=== PATIENT | male | born 1955 | race Caucasian/White ===

== ENCOUNTER 2016-04-15 09:57 | Inpatient (IN) | payer OTHER ==
[~2016-04-15] VITALS: Ht 172.7 cm; Wt 88.0 kg
[~2016-04-15 09:57] MED LIST: ALEVE220 MG PO; DAILY VALUE1 EACH PO; FISH OIL500 MG PO; FLOMAX0.4 MG PO; FLONASE16 G1 BOTH NARES; GLIPIZIDE10 MG PO; GLUCOPHAGE1000 MG PO; ICY HOT PATCH1 PATCH TD; LIPITOR80 MG PO; LO-DOSE ASPIRIN81 M1 PO; PROSCAR5 MG PO; SYNTHROID50 MCG PO; ZESTRIL10 MG PO
[2016-04-15 11:22] LABS: HEMATOCRIT 44.1 % (38.0-50.0); MCH 30.8 PG (29.0-34.0); MCHC 34.5 G/DL (30.0-36.0); MCV 89.3 FL (86-99); MEAN PLAT.VOLUME 10.9 uM^3 (9.0-12.4); PLATELET COUNT 140 K/uL (156-360); RBC DIS.WIDTH-CV 12.6 % (11.8-14.6); RBC DIS.WIDTH-SD 40.1 % (39-53); RED BLOOD COUNT 4.94 M/uL (4.00-5.50); WHITE BLOOD COUNT 8.4 K/uL (4.1-10.2)
[2016-04-15 11:31] LABS: CHLORIDE 108 mEq/L (99-109); POTASSIUM 4.7 mEq/L (3.7-5.4); SODIUM 139 mEq/L (136-147)
[2016-04-15 11:32] LABS: GLUCOSE 156 mg/dL (70-99)
[2016-04-15 11:34] LABS: ANION GAP 15 MEQ/L (2-14)
[2016-04-15 11:36] LABS: GFR ESTIMATE (CALCULATED) > 59 mL/min/
[2016-04-15 11:37] LABS: UREA NITROGEN (BUN) 15 mg/dL (9-23)
[2016-04-15 11:44] LABS: TROP-I INTERPRETATION NEGATIVE; TROPONIN-I < 0.01 ng/mL (0.0-0.30)
[2016-04-15] MEDS ORDERED: CYANOCOBALAM1000 MCG PO (15:11)
[2016-04-15 17:50] VITALS: BP 133/78
[2016-04-15 19:12] LABS: TROP-I INTERPRETATION NEGATIVE; TROPONIN-I < 0.01 ng/mL (0.0-0.30)
[2016-04-15 19:24] LABS: HDL CHOLESTEROL 18 MG/DL (Desirable>=40); LDL CHOLESTEROL 8 mg/dL (Desirable<100); NON-HDL CHOLESTEROL 56 mg/dL (Desirable<160); TOTAL CHOLESTEROL 74 mg/dL (Desirable<200); TRIGLYCERIDES 242 MG/DL (Normal: <150)
[2016-04-15 20:00] VITALS: BP 132/86
[2016-04-15 22:08] LABS: POINT-OF-CARE METER ID UU13113700
[2016-04-16 00:01] VITALS: BP 155/76
[2016-04-16 04:20] VITALS: BP 131/71
[2016-04-16 08:36] VITALS: BP 148/78
[2016-04-16 12:37] LABS: POINT-OF-CARE METER ID UU13113700
[2016-04-16 13:07] LABS: TROP-I INTERPRETATION NEGATIVE; TROPONIN-I < 0.01 ng/mL (0.0-0.30)
[2016-04-16 13:09] VITALS: BP 132/76
[2016-04-16 16:11] VITALS: BP 133/78
[2016-04-16 17:50] LABS: POINT-OF-CARE METER ID UU13113700
[2016-04-16 20:05] VITALS: BP 145/79
[2016-04-16 21:58] LABS: POINT-OF-CARE METER ID UU13113700
[2016-04-17 00:51] VITALS: BP 128/62
[2016-04-17 05:09] VITALS: BP 134/71
[2016-04-17 08:25] VITALS: BP 122/76
[2016-04-17 08:36] LABS: POINT-OF-CARE METER ID UU13113700
[2016-04-17 17:02] LABS: POINT-OF-CARE METER ID UU13113700
[2016-04-17 21:04] LABS: POINT-OF-CARE METER ID UU14162513
[2016-04-17 21:23] VITALS: BP 113/55
[2016-04-18 00:22] VITALS: BP 112/59
[2016-04-18 04:45] VITALS: BP 121/65
[2016-04-18 07:38] LABS: POINT-OF-CARE METER ID UU13113831
[2016-04-18 08:09] VITALS: BP 117/73
[2016-04-18 12:03] LABS: POINT-OF-CARE METER ID UU13113700
[2016-04-18 12:30] VITALS: BP 92/52
[2016-04-18 16:30] VITALS: BP 112/59
[2016-04-18 17:37] LABS: POINT-OF-CARE METER ID UU13113700
[2016-04-18 21:30] VITALS: BP 117/67
[2016-04-18 22:06] LABS: POINT-OF-CARE METER ID UU13113700
[2016-04-19 00:20] VITALS: BP 115/54
[2016-04-19 05:00] VITALS: BP 110/68
[2016-04-19 06:10] LABS: HEMATOCRIT 42.8 % (38.0-50.0); MCH 31.1 PG (29.0-34.0); MCHC 33.4 G/DL (30.0-36.0); MEAN PLAT.VOLUME 11.4 uM^3 (9.0-12.4); PLATELET COUNT 116 K/uL (156-360); RBC DIS.WIDTH-CV 12.7 % (11.8-14.6); RBC DIS.WIDTH-SD 43.3 % (39-53); WHITE BLOOD COUNT 7.1 K/uL (4.1-10.2)
[2016-04-19 06:30] LABS: ANION GAP 9 MEQ/L (2-14); CHLORIDE 107 MEQ/L (99-109); GFR ESTIMATE (CALCULATED) > 59 mL/min/; GLUCOSE 124 mg/dL (70-99); POTASSIUM 3.9 MEQ/L (3.7-5.4); SAMPLE HEMOLYSIS CHECK 0; SAMPLE ICTERIC CHECK 0; SAMPLE LIPEMIA CHECK 0; SODIUM 140 MEQ/L (136-147)
[2016-04-19 06:32] LABS: UREA NITROGEN (BUN) 32 mg/dL (9-23)
[2016-04-19 08:01] VITALS: BP 110/64
[2016-04-19 08:31] LABS: POINT-OF-CARE METER ID UU14162513
[2016-04-19 09:21] LABS: INTER. NORMALIZED RATIO 1.1; PROTHROMBIN TIME 10.7 (9.2-11.2)
[2016-04-19 20:07] VITALS: BP 137/89
[2016-04-19 20:57] LABS: HEMATOCRIT 40.2 % (38.0-50.0); MCH 30.2 PG (29.0-34.0); MCHC 33.1 G/DL (30.0-36.0); MCV 91.2 FL (86-99); MEAN PLAT.VOLUME 11.2 uM^3 (9.0-12.4); PLATELET COUNT 109 K/uL (156-360); RBC DIS.WIDTH-CV 12.6 % (11.8-14.6); RBC DIS.WIDTH-SD 41.9 % (39-53); RED BLOOD COUNT 4.41 M/uL (4.00-5.50); WHITE BLOOD COUNT 6.5 K/uL (4.1-10.2)
[2016-04-19 21:03] LABS: EOSINOPHIL (%) 1.8 % (0-5); EOSINOPHIL COUNT 0.1 K/uL (0-0.3); IMMATURE GRANULOCYTE (%) 0.2 % (0.0-0.7); LYMPHOCYTE COUNT 0.9 K/uL (1.0-2.8); MONOCYTE (%) 8.1 % (3-12); MONOCYTE COUNT 0.5 K/uL (0-0.8); NEUTROPHIL (%) 75.7 % (45-76); NEUTROPHIL COUNT 4.9 K/uL (1.8-6.4)
[2016-04-19 23:21] VITALS: BP 124/66
[2016-04-20 03:35] VITALS: BP 121/71
[2016-04-20 06:49] LABS: EOSINOPHIL (%) 4.5 % (0-5); EOSINOPHIL COUNT 0.3 K/uL (0-0.3); HEMATOCRIT 37.5 % (38.0-50.0); IMMATURE GRANULOCYTE (%) 0.1 % (0.0-0.7); LYMPHOCYTE COUNT 1.2 K/uL (1.0-2.8); MCH 30.9 PG (29.0-34.0); MCHC 33.6 G/DL (30.0-36.0); MCV 91.9 FL (86-99); MEAN PLAT.VOLUME 11.5 uM^3 (9.0-12.4); MONOCYTE (%) 13.7 % (3-12); MONOCYTE COUNT 0.9 K/uL (0-0.8); NEUTROPHIL (%) 63.5 % (45-76); NEUTROPHIL COUNT 4.3 K/uL (1.8-6.4); PLATELET COUNT 103 K/uL (156-360); RBC DIS.WIDTH-CV 12.7 % (11.8-14.6); RBC DIS.WIDTH-SD 42.8 % (39-53); RED BLOOD COUNT 4.08 M/uL (4.00-5.50); WHITE BLOOD COUNT 6.7 K/uL (4.1-10.2)
[2016-04-20 07:17] LABS: ANION GAP 8 MEQ/L (2-14); CHLORIDE 108 MEQ/L (99-109); GFR ESTIMATE (CALCULATED) > 59 mL/min/; GLUCOSE 107 mg/dL (70-99); SAMPLE HEMOLYSIS CHECK 0; SAMPLE ICTERIC CHECK 0; SAMPLE LIPEMIA CHECK 0; SODIUM 138 MEQ/L (136-147); UREA NITROGEN (BUN) 17 mg/dL (9-23)
[2016-04-20 08:02] VITALS: BP 128/76
[2016-04-20 08:12] LABS: POINT-OF-CARE METER ID UU13113781; POINT-OF-CARE USER ID 515034806
[2016-04-20 11:33] VITALS: BP 126/69
[2016-04-20 11:55] LABS: POINT-OF-CARE METER ID UU13113781; POINT-OF-CARE USER ID ENVKC36
[2016-04-20] MEDS ORDERED: LOPRESSOR25 MG PO (12:54)
[2016-04-20] MEDS ORDERED: BRILINTA90 MG PO (12:54)
== END 2016-04-20 16:32 | disposition home or self-care (01) | DRG 247 ==
LOC: EME 09:57 → EDOF 16:12 → 5WEST 16:12 → EDOF 16:12 → 5WEST 17:46 → 4EAST 04-19 19:59
PROVIDERS: Hospitalist; Internal Medicine; Internal Medicine Cardiovascular Disease; Nurse Practitioner Adult Health; Student in an Organized Health Care Education/Training Program
DX: I25.110 Atherosclerotic heart disease of native coronary artery with unstable angina pectoris (principal); E11.9 Type 2 diabetes mellitus without complications; K21.9 Gastro-esophageal reflux disease without esophagitis; I11.9 Hypertensive heart disease without heart failure; E78.5 Hyperlipidemia, unspecified; G62.9 Polyneuropathy, unspecified; E03.9 Hypothyroidism, unspecified; N40.0 Benign prostatic hyperplasia without lower urinary tract symptoms
CPT/HCPCS: 71020; 80048; 80061; 82948; 84484; 85025; 85027; 85347; 85610; 85730; 93005; 99281; 99285; C1725; C1760; C1769; C1874; C1887; C1894; G0378; J0153; J1644; J1815; J2250; J3010; J3246; J7030; J7050; S0028